=== PATIENT | female | born 1980 | race Caucasian/White ===

== ENCOUNTER → 2016-03-24 | Outpatient (CLI) | payer OTHER ==
--- NOTE | 2016-03-24 15:09 | DX ---
Chest, PA and Lateral History: Cough, R05 Comparison: None Findings: Lungs are clear, without infiltrate or consolidation. Heart size is normal. There is no nat nopathy or mass lesion. There is no pleural effusion or pneumothorax. Bones are unremarkable for age. Impression: Normal; no source for cough identified..
== END ==
LOC: BRMIMAGING 12:30
PROVIDERS: ATTEND Physician Assistant Medical
DX: R05 Cough (principal)
CPT/HCPCS: 71020-PO

== ENCOUNTER → 2017-05-25 | Outpatient (CLI) | payer OTHER | LOC: BRMIMAGING 09:56 | PROVIDERS: ATTEND Physician Assistant Medical | DX: S99.922A Unspecified injury of left foot, initial encounter (principal) | CPT/HCPCS: 73630-PO ==